=== PATIENT | male | born 1950 | race Caucasian/White ===

== ENCOUNTER 2020-01-22 12:31 | Emergency (ER) | payer MEDICARE ==
[~2020-01-22] VITALS: Ht 185.4 cm; Wt 112.0 kg
[2020-01-22] MEDS ORDERED: LISINOPRIL20 MG PO (12:48)
[2020-01-22] MEDS ORDERED: NORCO 10-325 T1 EACH PO (12:48)
[2020-01-22] MEDS ORDERED: TIZANIDINE HCL4 M1 PO (12:48)
[2020-01-22] MEDS ORDERED: THYROID PILL (12:49)
[2020-01-22 13:01] LABS: ABSOLUTE BASOPHILS 0.1 thou/uL (0.0-0.2); ABSOLUTE LYMPHOCYTES 1.5 thou/uL (0.8-5.3); BASOPHILS 0.5 %; EOSINOPHILS 0.1 %; HEMOGLOBIN 14.5 gm/dL (14.0-18.0); LYMPHOCYTES 10.7 %; MCH 36.3 pg (26.0-34.0); MCHC 33.6 g/dL (28.0-37.0); MCV 108.1 fL (80.0-100.0); MONOCYTES 7.2 %; MPV 7.9 fl. (7.2-11.1); NUCLEATED RBCS 0 /100WBC; PLATELET COUNT* 250 thou/uL (150-400); POLYS 81.5 %; RBC 3.98 mil/uL (4.50-6.00); RDW-CV 13.8 % (10.5-14.5); WBC 13.5 thou/uL (4.0-11.0)
[2020-01-22 13:07] LABS: CALCIUM 9.2 mg/dL (8.5-10.1); CREATININE 1.2 mg/dL (0.6-1.3); POTASSIUM 4.4 mmol/L (3.5-5.1)
[2020-01-22 13:12] LABS: TOTAL BILIRUBIN 0.4 mg/dL (<0.1-1.0); TOTAL PROTEIN 6.9 g/dL (6.4-8.2)
[2020-01-22 13:15] LABS: URINE BILIRUBIN NEGATIVE (Negative); URINE BLOOD 2+ (Negative); URINE CLARITY CLEAR; URINE COLOR YELLOW; URINE GLUCOSE-RANDOM NEGATIVE (Negative); URINE KETONES NEGATIVE (Negative); URINE LEUKOCYTES-REFLEX NEGATIVE (Negative); URINE NITRITE-REFLEX NEGATIVE (Negative); URINE PROTEIN NEGATIVE (Negative); URINE UROBILINOGEN 0.2 E.U./dl (0.2-1.0)
[2020-01-22 13:20] LABS: BACTERIA-REFLEX 1-9 Few /HPF (None Seen); CRYSTALS None Seen /LPF (None Seen); HYALINE CASTS 0-3 Few /LPF (None Seen); MUCUS 0-3 Light strn/LPF (None Seen); SQUAMOUS 0-3 Few /LPF (0-3); URINE WBC-REFLEX 0-5 Rare /HPF (0-5)
[2020-01-22] MEDS ORDERED: CIPROFLOXACIN500 M1 PO (13:33)
[2020-01-22 13:54] VITALS: BP 138/92
== END 2020-01-22 13:55 | disposition home or self-care (01) ==
LOC: M.ERS 12:31
PROVIDERS: Family Medicine
DX: R33.9 Retention of urine, unspecified (principal); E87.1 Hypo-osmolality and hyponatremia; I10 Essential (primary) hypertension; E03.9 Hypothyroidism, unspecified; Z79.899 Other long term (current) drug therapy

== ENCOUNTER 2021-03-28 11:10 | Emergency (ER) | payer MEDICARE ==
[~2021-03-28] VITALS: Ht 185.4 cm; Wt 89.8 kg
[~2021-03-28 11:10] MED LIST: CIPROFLOXACIN500 M1 PO; LISINOPRIL20 MG PO; NORCO 10-325 T1 EACH PO; THYROID PILL; TIZANIDINE HCL4 M1 PO
[2021-03-28 14:49] VITALS: BP 139/68
== END 2021-03-28 14:49 | disposition home or self-care (01) ==
LOC: M.ERS 11:10
DX: M79.604 Pain in right leg (principal); I10 Essential (primary) hypertension; E78.5 Hyperlipidemia, unspecified; E03.9 Hypothyroidism, unspecified; W22.09XA Striking against other stationary object, initial encounter; Y93.89 Activity, other specified; Y92.89 Other specified places as the place of occurrence of the external cause; Y99.8 Other external cause status; Z79.2 Long term (current) use of antibiotics; Z79.899 Other long term (current) drug therapy